=== PATIENT | female | born 1980 | race Caucasian/White ===

== ENCOUNTER → 2019-03-19 | Outpatient (CLI) | payer BC | LOC: FIMAGING 07:57 | DX: O09.522 Supervision of elderly multigravida, second trimester (principal); O43.192 Other malformation of placenta, second trimester; Z3A.26 26 weeks gestation of pregnancy ==

== ENCOUNTER → 2019-04-25 | Outpatient (CLI) | payer BC | LOC: FIMAGING 13:43 ==